=== PATIENT | male | born 1990 | race Caucasian/White ===

== ENCOUNTER 2018-03-30 13:08 | Emergency (ER) | payer SELFPAY ==
[2018-03-30 13:22] VITALS: BP 114/76
--- NOTE | 2018-03-30 14:08 | UC ---
Skin Complaint HPI - HPI Summary HPI Summary: 1-nasal congestion and post nasal drip for several weeks----2. tick on left upper thigh was on 24-36 hours removed 96 hours ago--less than dime size rash at tick site - History of Current Complaint Chief Complaint: UCSkin Time Seen by Provider: 03/30/18 14:04 Stated Complaint: TICK BITE COUGH Hx Obtained From: Patient Onset/Duration: Sudden Onset, Lasting Days Pain Intensity: 0 Location: Discrete Aggravating Factor(s): Nothing Alleviating Factor(s): Nothing Associated Signs & Symptoms: Positive: Negative Related History: Possible Reaction to: Insect - Allergy/Home Medications Allergies/Adverse Reactions: Allergies Allergy/AdvReac Type Severity Reaction Status Date / Time No Known Allergies Allergy Verified 03/30/18 13:22 Home Medications: Home Medications Pseudoephedrine HCl [Sudafed 12 Hour] 120 mg PO 03/30/18 [History] Review of Systems Constitutional: Negative Skin: Other - erythema right upper thigh at tick bite site Eyes: Negative ENT: Nasal Discharge, Sinus Congestion Respiratory: Cough Cardiovascular: Negative Gastrointestinal: Negative Genitourinary: Negative Motor: Negative Neurovascular: Negative Musculoskeletal: Negative Neurological: Negative Psychological: Negative Is Patient Immunocompromised?: No All Other Systems Reviewed And Are Negative: Yes PMH/Surg Hx/FS Hx/Imm Hx Previously Healthy: Yes - Surgical History Surgical History: None - Family History Known Family History: Positive: None - Social History Occupation: Employed Full-time Lives: With Family Alcohol Use: Daily Substance Use Type: None Smoking Status (MU): Heavy Every Day Tobacco Smoker Type: Cigarettes Physical Exam Triage Information Reviewed: Yes Appearance: Well-Appearing, No Pain Distress, Well-Nourished Vital Signs: Initial Vital Signs Temp 98.0 F 03/30/18 13:19 Pulse 72 03/30/18 13:19 Resp 18 03/30/18 13:19 BP 114/76 03/30/18 13:19 Pulse Ox 98 03/30/18 13:19 Vital Signs Reviewed: Yes Eye Exam: Normal Eyes: Positive: Conjunctiva Clear ENT Exam: Normal ENT: Positive: Normal ENT inspection, Hearing grossly normal, Pharynx normal, Nasal congestion, TMs normal, Uvula midline. Negative: Trismus, Muffled voice, Hoarse voice, Dental tenderness, Sinus tenderness Dental Exam: Normal Neck exam: Normal Neck: Positive: Supple, Nontender, No Lymphadenopathy Respiratory Exam: Normal Respiratory: Positive: Chest non-tender, Lungs clear, Normal breath sounds, No respiratory distress, No accessory muscle use Cardiovascular Exam: Normal Cardiovascular: Positive: RRR, No Murmur, Pulses Normal, Brisk Capillary Refill Musculoskeletal Exam: Normal Musculoskeletal: Positive: Strength Intact, ROM Intact, No Edema Neurological Exam: Normal Neurological: Positive: Alert, Muscle Tone Normal Psychological Exam: Normal Psychological: Positive: Normal Response To Family Skin Exam: Other Skin: Positive: Other - tick bite right upper thigh, less than dime size erythema Course/Dx - Course Course Of Treatment: flonase, zyrtec D, observe for s/s of Lyme follow with pcp as planned - Diagnoses Provider Diagnoses: Allergic rhinosinusitis, tick exposure Discharge - Sign-Out/Discharge Documenting (check all that apply): Discharge/Admit/Transfer - Discharge Plan Condition: Stable Disposition: HOME Prescriptions: Fluticasone NASAL SPRAY 50MCG* [Flonase NASAL SPRAY 50MCG*] 2 spray BOTH NARES DAILY #1 btl Patient Education Materials: Tick Bite (ED), Allergic Rhinitis (DC), Postnasal Drip (DC) Referrals: [facility] [place] [facility] REFERRAL [Outside] - If Needed Additional Instructions: Follow with primary care on April 12 as planned-- - Billing Disposition and Condition Condition: STABLE Disposition: HOME
== END 2018-03-30 14:40 | disposition home or self-care (01) ==
LOC: UCEAST 13:08
DX: J30.9 Allergic rhinitis, unspecified (principal); S70.362A Insect bite (nonvenomous), left thigh, initial encounter; W57.XXXA Bitten or stung by nonvenomous insect and other nonvenomous arthropods, initial encounter; Y93.9 Activity, unspecified; Y92.9 Unspecified place or not applicable; F17.210 Nicotine dependence, cigarettes, uncomplicated
CPT/HCPCS: 99202; G0463

== ENCOUNTER 2019-05-06 21:03 | Emergency (ER) | payer SELFPAY ==
[2019-05-07 01:23] LABS: ABS Basophils 0.1 10^3/ul (0-0.2); ABS Eosinophils 0.2 10^3/ul (0-0.6); ABS Lymphocytes 3.1 10^3/ul (1.0-4.8); ABS Monocytes 0.6 10^3/ul (0-0.8); ABS Neutrophils 4.9 10^3/ul (1.5-7.7); Eosinophil % 1.9 %; Hematocrit 41 % (42-52); Hemoglobin 14.4 g/dL (14.0-18.0); Lymphocyte % 35.4 %; Mean Corpuscular HGB Conc 35 g/dL (31-36); Mean Corpuscular Hemoglobin 29 pg (27-31); Mean Corpuscular Volume 83 fL (80-94); Mean Platelet Volume 8.5 fL (7.4-10.4); Platelet Count 173 10^3/uL (150-450); Red Blood Count 4.93 10^6 /uL (4.18-5.48); Red Cell Distribution Width 13 % (10-15); White Blood Count 8.8 10^3/uL (3.5-10.8)
[2019-05-07 01:44] LABS: Albumin 4.4 g/dL (3.2-5.2); Albumin/Globulin Ratio 1.6 (1-3); BUN/Creatinine Ratio 18.6 (8-20); C Reactive Protein 6.86 mg/L (<8.01); Calcium 9.6 mg/dL (8.6-10.3); EGFR Non-African American 90.9 (>60); Globulin 2.7 g/dL (2-4); Potassium 4.1 mmol/L (3.5-5.0); Total Bilirubin 0.6 mg/dL (0.2-1.0); Total Protein 7.1 g/dL (6.4-8.9)
--- NOTE | 2019-05-07 02:01 | ED ---
Palpitations / Dysrhythmia - HPI Summary HPI Summary: Patient complains of sensation of heart pounding in chest and feeling pulses in neck and lightheaded x one week. Symptoms are constant. Denies fever, cough, sore throat, CP, SOB, N/V/D, abdominal pain, change in urine, change in BM. Admits to daily EtOH. Quit smoking 4 months ago. Denies recreational drug use and use of energy drinks. Medical history is none. Patient works out regularly , has noticed no change in endurance or CP or SOB with exercise - History of Current Complaint Chief Complaint: EDDizziness Time Seen by Provider: 05/07/19 00:30 Hx Obtained From: Patient Onset/Duration: Gradual Onset, Lasting Days Timing: Constant Severity Initially: Moderate Severity Currently: Mild Character: Pounding Aggravating: Nothing Alleviating: Nothing Associated Signs & Symptoms: Lightheadedness - Allergy/Home Medications Allergies/Adverse Reactions: Allergies Allergy/AdvReac Type Severity Reaction Status Date / Time No Known Allergies Allergy Verified 05/06/19 21:10 PMH/Surg Hx/FS Hx/Imm Hx Endocrine/Hematology History: Denies: Hx Anticoagulant Therapy Cardiovascular History: Denies: Hx Pacemaker/ICD History: Denies: Hx Dialysis Musculoskeletal History: Denies: Hx Scoliosis Sensory History: Denies: Hx Legally Blind Opthamlomology History: Denies: Hx Eye Prosthesis EENT History: Denies: Hx Deafness Neurological History: Reports: Hx Headaches Denies: Other Neuro Impairments/Disorders Infectious Disease History: No Infectious Disease History: Reports: Traveled Outside the [place] in Last 30 Days - Family History Known Family History: Positive: None - Social History Alcohol Use: Daily Substance Use Type: Reports: None Smoking Status (MU): Heavy Every Day Tobacco Smoker Type: Cigarettes Review of Systems Constitutional: Negative Eyes: Negative ENT: Negative Positive: Palpitations Respiratory: Negative Gastrointestinal: Negative Genitourinary: Negative Musculoskeletal: Negative Skin: Negative Neurological: Negative Psychological: Normal All Other Systems Reviewed And Are Negative: Yes Physical Exam - Summary Physical Exam Summary: Lung sounds clear to auscultation bilaterally. Bradycardic. Abdomen soft nontender. Triage Information Reviewed: Yes Vital Signs On Initial Exam: Initial Vitals Temp Pulse Resp BP Pulse Ox 98.7 F 83 20 152/88 97 05/06/19 21:09 05/06/19 21:05/06/19 21:09 05/06/19 21:09 05/06/19 21:09 Vital Signs Reviewed: Yes Appearance: Positive: Well-Appearing Skin: Positive: Warm Head/Face: Positive: Normal Head/Face Inspection Eyes: Positive: Normal ENT: Positive: Normal ENT inspection Neck: Positive: Supple Respiratory/Lung Sounds: Positive: Clear to Auscultation Cardiovascular: Positive: Normal Abdomen Description: Positive: Nontender Musculoskeletal: Positive: Normal Neurological: Positive: Normal Psychiatric: Positive: Normal AVPU Assessment: Alert - Armand Coma Scale Best Eye Response: 4 - Spontaneous Best Motor Response: 6 - Obeys Commands Best Verbal Response: 5 - Oriented Coma Scale Total: 15 Diagnostics - Vital Signs Vital Signs Temp Pulse Resp BP Pulse Ox 05/07/19 01:28 67 23 131/63 98 05/07/19 01:11 67 15 124/64 96 05/07/19 01:00 58 25 97 05/07/19 00:58 63 22 113/72 96 05/07/19 00:28 59 128/77 97 05/06/19 23:50 98.1 F 59 16 136/84 98 05/06/19 21:09 98.7 F 83 20 152/88 97 - Laboratory Lab Results: Lab Results 05/07/19 05/07/19 Range/Units 01:16 01:16 WBC 8.8 (3.5-10.8) 10^3/uL RBC 4.93 (4.18-5.48) 10^6 /uL Hgb 14.4 (14.0-18.0) g/dL Hct 41 L (42-52) % MCV 83 (80-94) fL MCH 29 (27-31) pg MCHC 35 (31-36) g/dL RDW 13 (10-15) % Plt Count 173 (150-450) 10^3/uL MPV 8.5 (7.4-10.4) fL Neut % (Auto) 55.4 % Lymph % (Auto) 35.4 % [place] % (Auto) 6.7 % Eos % (Auto) 1.9 % Baso % (Auto) 0.6 % Absolute Neuts (auto) 4.9 (1.5-7.7) 10^3/ul Absolute Lymphs (auto) 3.1 (1.0-4.8) 10^3/ul Absolute Monos (auto) 0.6 (0-0.8) 10^3/ul Absolute Eos (auto) 0.2 (0-0.6) 10^3/ul Absolute Basos (auto) 0.1 (0-0.2) 10^3/ul Absolute Nucleated RBC 0.0 10^3/ul Nucleated RBC % 0.0 Sodium 138 (135-145) mmol/L Potassium 4.1 (3.5-5.0) mmol/L Chloride 104 (101-111) mmol/L Carbon Dioxide 26 (22-32) mmol/L Anion Gap 8 (2-11) mmol/L BUN 18 (6-24) mg/dL Creatinine 0.97 (0.67-1.17) mg/dL Est GFR ( Amer) 110.0 (>60) Est GFR (Non-Af Amer) 90.9 (>60) BUN/Creatinine Ratio 18.6 (8-20) Glucose 90 (70-100) mg/dL Calcium 9.6 (8.6-10.3) mg/dL Total Bilirubin 0.60 (0.2-1.0) mg/dL AST 22 (13-39) U/L ALT 25 (7-52) U/L Alkaline Phosphatase 51 (34-104) U/L C-Reactive Protein 6.86 (<8.01) mg/L Total Protein 7.1 (6.4-8.9) g/dL Albumin 4.4 (3.2-5.2) g/dL Globulin 2.7 (2-4) g/dL Albumin/Globulin Ratio 1.6 (1-3) TSH Pending Result Diagrams: 05/07/19 01:16 05/07/19 01:16 Lab Statement: Any lab studies that have been ordered have been reviewed, and results considered in the medical decision making process. Course/Dx - Course Course Of Treatment: Patient complains of sensation of heart pounding in chest and feeling pulses in neck and lightheaded x one week. Symptoms are constant. Denies fever, cough, sore throat, CP, SOB, N/V/D, abdominal pain, change in urine, change in BM. Admits to daily EtOH. Quit smoking 4 months ago. Denies recreational drug use and use of energy drinks. Medical history is none. Patient works out regularly, has noticed no change in endurance or CP or SOB with exercise. Physical exam:Lung sounds clear to auscultation bilaterally. RRR. Abdomen soft nontender. Vital signs within normal limits. Labs unremarkable. EKG sinus rhythm. Advised [facility]. Patient understands improves with plan. - Diagnoses Provider Diagnoses: Pounding heartbeat, Lightheadedness Discharge - Sign-Out/Discharge Documenting (check all that apply): Patient Departure Patient Received Moderate/Deep Sedation with Procedure: No - Discharge Plan Condition: Stable Disposition: HOME Prescriptions: Meclizine TAB* [Antivert 12.5 TAB*] 25 mg PO TID PRN 7 Days #21 tab PRN Reason: Dizziness Meclizine TAB* [Antivert 12.5 TAB*] 25 mg PO TID PRN 7 Days #21 tab PRN Reason: Dizziness Patient Education Materials: Heart Palpitations (ED) Referrals: Avis Brunner [Primary Care Provider] - David Leone MD [Medical Doctor] - Additional Instructions: Follow-up with primary care and cardiology Dr. Leone for further evaluation of pounding heartbeat. Return to the ED for any new or worsening symptoms. - Billing Disposition and Condition Condition: STABLE Disposition: Home
[2019-05-07 02:12] LABS: TSH (Thyroid Stimulating Horm) 3.87 mcIU/mL (0.34-5.60)
[2019-05-07] MEDS ORDERED: Meclizine TAB* 12.5 MG PO ONE (02:23)
[2019-05-07 02:35] VITALS: BP 117/70
== END 2019-05-07 02:35 | disposition home or self-care (01) ==
LOC: ED 21:03
DX: R00.2 Palpitations (principal); R42 Dizziness and giddiness; F17.210 Nicotine dependence, cigarettes, uncomplicated
CPT/HCPCS: 36415; 80053; 84443; 85025; 86140; 93005; 99283; A9270-GY